=== PATIENT | male | born 1960 | race Caucasian/White ===

== ENCOUNTER 2021-04-27 15:58 | Outpatient (REF) | payer MEDICARE, SELFPAY ==
[2021-04-27 16:58] LABS: Anion Gap 12 (12-20); Blood Urea Nitrogen 13 mg/dL (9-16); Calcium 9.3 mg/dL (8.4-10.2); Carbon Dioxide 27 mmol/L (22-29); Chloride 102 mmol/L (96-108); Estimated Glomerular Filt Rate > 60; Glucose Random 91 mg/dL (60-115); Potassium 5.3 mmol/L (3.3-5.1); Sodium 136 mmol/L (135-145)
[2021-04-27 17:34] LABS: Folate 9.8 ng/mL (> or = 4.0); Vitamin B12 444 pg/mL (200-900)
== END 2021-04-27 15:59 | disposition home or self-care (01) ==
LOC: HO.LAB 15:58
PROVIDERS: Visit Provider Psychiatry & Neurology Neurology
DX: G40.219 Localization-related (focal) (partial) symptomatic epilepsy and epileptic syndromes with complex partial seizures, intractable, without status epilepticus (principal)
CPT/HCPCS: 36415; 80048; 82607; 82746; 84443